=== PATIENT | female | born 1990 | race Two or more races ===

== ENCOUNTER 2024-05-04 08:26 | Emergency (ER) | payer MEDICAID, SELFPAY ==
[2024-05-04 08:35] VITALS: BP 115/88; PULSE 106; RESP 20; TEMP 36.9; O2SAT 98; BMI 36.9
--- NOTE | 2024-05-04 08:39 | PD.EDEXREM ---
ED Extremity Problem RME/HPI General Chief complaint: Extremity Problem,Nontraumatic Stated complaint: LEFT SCIATIC NERVE PAIN X YESTERDAY BUT PROGRESSED Time Seen by Provider: 05/04/24 08:29 Arrival date/time: 05/04/24 08:26 33-year-old female presents emergency department complaints of left buttock pain radiating down the left leg patient reports symptom started yesterday and has progressed patient reports history of sciatica reports feels the same. Patient reports no saddle anesthesia no loss of bowel or bladder patient reports no chance of Limitations: no limitations Related Data Previous Rx's ?Medication ?Instructions ?Recorded ibuprofen 800 mg tablet 800 mg PO TID PRN pain #30 tabs 08/02/21 ibuprofen 800 mg tablet 800 mg PO TID PRN pain #30 tabs 05/13/22 ibuprofen 800 mg tablet 800 mg PO Q8H PRN pain #30 tabs 11/16/22 cyclobenzaprine 10 mg tablet 10 mg PO TID PRN muscle spasm 10 05/04/24 days #30 tab-caps hydrocodone 5 mg-acetaminophen 325 1 tab PO BID PRN pain #10 tabs 05/04/24 mg tablet ibuprofen 800 mg tablet 800 mg PO TID PRN pain #30 tabs 05/04/24 Allergies Allergy/AdvReac Type Severity Reaction Status Date / Time No Known Allergies Allergy Verified 05/04/24 08:27 Review of Systems Review of Systems Systems Reviewed: All systems reviewed, normal except as documented Constitutional Constitutional: Reports system reviewed and no additional complaints, except as documented, Denies fever(s) and Denies headache(s) Eyes Eyes: Reports system reviewed and no additional complaints, except as documented and Denies blurry vision ENT Ears, Nose, Mouth, and Throat: Reports system reviewed and no additional complaints, except as documented, Denies headache(s), Denies nasal congestion and Denies nasal discharge Cardiovascular Cardiovascular: Reports system reviewed and no additional complaints, except as documented, Denies chest pain and Denies dyspnea Respiratory Respiratory: Reports system reviewed and no additional complaints, except as documented, Denies chest congestion, Denies cough and Denies dyspnea Gastrointestinal Gastrointestinal: Reports system reviewed and no additional complaints, except as documented and Denies abdominal pain Musculoskeletal Musculoskeletal: Reports system reviewed and no additional complaints, except as documented, Reports abnormal gait, Reports back pain, Denies deformity, Denies numbness, Reports stiffness and Denies tingling Integumentary/Breasts Skin/Breast: Reports system reviewed and no additional complaints, except as documented and Denies rash Neurologic Neurologic: Reports system reviewed and no additional complaints, except as documented, Reports as per HPI, Reports abnormal gait, Denies headache(s), Denies numbness and Denies tingling Past Medical History Past Medical History NEUROLOGIC: Negative Neurological Disorders CARDIAC: Negative Cardiac Disorders ED Exam General Limitations: Present no limitations General appearance: Present alert and in no apparent distress Head Head exam: Present atraumatic Eye Eye exam: Present normal appearance, PERRL and EOMI ENT ENT exam: Present normal exam, normal oropharynx and mucous membranes moist Neck Neck exam: Present normal inspection, full ROM and trachea midline Chest Chest inspection: Present normal inspection and symmetric chest wall rise Respiratory Respiratory exam: Present normal lung sounds bilaterally Cardiovascular Cardiovascular exam: Present regular rate, normal rhythm and normal heart sounds Abdominal Exam Abdominal exam: Present soft and normal bowel sounds Extremities Exam Extremities exam: Present normal inspection, full ROM, tenderness and normal capillary refill Back Exam Back exam: Present normal inspection, full ROM, tenderness, muscle spasm, paraspinal tenderness, sciatic notch tenderness (L) and straight leg raise (L); Absent CVA tenderness (R), CVA tenderness (L) or vertebral tenderness Neurological Exam Neurological exam: Present alert, oriented X3 and CN II-XII intact Psychiatric Psychiatric exam: Present normal affect and normal mood Skin Skin exam: Present warm, dry, intact and normal color Course Quality Measures none Orders Category Date Time Status Dexamethasone Inj [Decadron Inj] Med 05/04/24 08:55 Discontinued 10 mg IM X1 ONE Dexamethasone Inj [Decadron Inj] Med 05/04/24 08:37 Discontinued 10 mg PO X1 ONE Diazepam [Valium] Med 05/04/24 08:37 Discontinued 10 mg PO X1 ONE Ketorolac Inj [Toradol Inj] Med 05/04/24 08:37 Discontinued 30 mg IM X1 ONE Vital Signs Vital signs: Vital Signs Temperature 98.5 F 05/04/24 08:35 Pulse Rate 106 H 05/04/24 08:35 Respiratory Rate 20 05/04/24 08:35 Blood Pressure 115/88 H 05/04/24 08:35 Pulse Oximetry (%) 98 05/04/24 08:35 Oxygen Delivery Method Room Air 05/04/24 08:35 O2 saturation 98% room air within limits Extremity Problem MDM Narrative MDM Narrative:: 33-year-old female presents emergency department complaints of left buttock pain radiating down the left leg patient reports symptom started yesterday and has progressed patient reports history of sciatica reports feels the same. Patient reports no saddle anesthesia no loss of bowel or bladder patient reports no chance of On exam patient well-appearing patient does not appear ill or toxic and in no acute distress Patient medicated here for pain symptoms consistent with sciatica Patient discharged home in no distress to follow-up with primary care doctor in the next 24 to 48 hours and for any worsening symptoms to return to the ER immediately Patient data External records reviewed:: [facility] previous records Clinical information provided by:: patient Social determinants that could affect healthcare access:: none Patient has the following chronic illnesses:: None How is presenting disease/condition affected by chronic disease/condition?: no chronic disease Evaluation data The following diagnostics were reviewed and interpreted by me:: other (specify) (N/A) Lab and/or radiology exams considered but not ordered:: Consider not ordered Interpretation Summary: N/A Medications / Prescriptions Medications or Prescriptions considered but not ordered:: Given Medication administrations:: Medication Administration History Discontinued Medications Dexamethasone Sodium Phosphate (Dexamethasone Sod Phos Inj 10 Mg/Ml Vial) 10 mg PO X1 ONE Stop: 05/04/24 08:38 Last Admin: 05/04/24 09:00 Dose: Not Given Documented By: MADI Non-Admin Reason: Duplicate Medication on eMAR Dexamethasone Sodium Phosphate (Dexamethasone Sod Phos Inj 10 Mg/Ml Vial) 10 mg IM X1 ONE Stop: 05/04/24 08:56 Last Admin: 05/04/24 09:00 Dose: 10 mg Documented By: MADI Diazepam (Diazepam 5 Mg Tablet) 10 mg PO X1 ONE Stop: 05/04/24 08:38 Last Admin: 05/04/24 08:57 Dose: 10 mg Documented By: MADI Ketorolac Tromethamine (Ketorolac Inj 30 Mg/Ml Vial) 30 mg IM X1 ONE Stop: 05/04/24 08:38 Last Admin: 05/04/24 08:57 Dose: 30 mg Documented By: MADI Given Consultations Consultation(s) initiated? (list below): No Diagnosis Extremity Problem Differential Diagnosis: other (Hip pain, sciatica, radiculopathy) Most likely diagnosis given after review of the tests above:: Back pain, siatica Admission Indicated Admission indicated?: not indicated Admission Request Was there a request for admission?: No Disposition Plan Disposition Plan: Discharge Discharge Attestation Discharge Attestation: The patient and all family members were given an opportunity to ask questions and understood the discharge instructions. Discharge instructions specifically effects, indications for sooner follow up or return to the emergency department, and the expected course of current diagnosis. Patient condition: Stable Discharge Plan Plan Patient Disposition: HOME (Self Care) Disposition Comment: stable Prescriptions/Referrals Prescriptions/Med Rec: New cyclobenzaprine 10 mg tablet 10 mg PO TID PRN (Reason: muscle spasm) 10 Days Qty: 30 0RF ibuprofen 800 mg tablet 800 mg PO TID PRN (Reason: pain) Qty: 30 0RF hydrocodone-acetaminophen 5-325 mg tablet 1 tab PO BID MDD 10 PRN (Reason: pain) Qty: 10 0RF No Action ibuprofen 800 mg tablet 800 mg PO TID PRN (Reason: pain) Qty: 30 0RF ibuprofen 800 mg tablet 800 mg PO TID PRN (Reason: pain) Qty: 30 0RF ibuprofen 800 mg tablet 800 mg PO Q8H PRN (Reason: pain) Qty: 30 0RF Problem List Clinical Impression: Left sided sciatica Patient/Caregiver Discharge Instructions Education Materials: ED Sciatica Additional Instructions: Please follow up with your primary care doctor in the next 24-48hrs for any worsening symptoms return here immediately Print Language: [place] Helen[place] Stand Alone Forms: Valeria Award Info., Work/School Release, Patient Portal Info Letter LISA/CAROLINA Supervising Physician LISA/CAROLINA Supervising Physician: Dr Butt
[2024-05-04] MEDS: KETOROLAC INJ 30 MG/ML VIAL IM (08:57)
[2024-05-04] MEDS: DIAZEPAM 5 MG TABLET 10 MG PO (08:57)
[2024-05-04] MEDS: DEXAMETHASONE SOD PHOS INJ 10 MG/ML VIAL IM (09:00)
== END 2024-05-04 09:18 | disposition home or self-care (01) ==
LOC: SERX 09:06
PROVIDERS: Emergency Provider Emergency Medicine; PCP Family Medicine
DX: M54.32 Sciatica, left side (principal)
CPT/HCPCS: 96372; 99283; J1100; J1885; A9270

== ENCOUNTER 2024-11-11 19:41 | Emergency (ER) | payer MEDICAID, SELFPAY ==
[2024-11-11 19:42] VITALS: BMI 37.2
[2024-11-11 21:43] VITALS: BP 126/83; PULSE 85; RESP 18; TEMP 36.9; O2SAT 99
--- NOTE | 2024-11-11 21:46 | EDNOTE_ITS ---
ED Back Injury Pain RME/HPI General Chief Complaint: Back Pain/Injury Stated Complaint: back pain Time Seen by Provider: 11/11/24 21:33 Arrival date/time: 11/11/24 19:41 RME / HPI RME / HPI Narrative: 33-year-old female with known sciatica/degenerative disc disease at L5-S1 presents to the ED with a complaint of low back pain with radiation down the left leg. She denies loss of bladder or bowel control. She does have some tingling and radiation pain down the left leg which is normal for her. She states that she has been moving and yesterday was moving a large cumbersome mattress. Last night she started to develop some pain which was exacerbated by sitting at a graduation for a long period of time this morning. She took ibuprofen 800 mg this morning and none since. She took a nap after coming home and could barely get out of bed. She had an MRI last week and was told she has L5-S1 disc bulging. Related Data Previous Rx's ?Medication ?Instructions ?Recorded ibuprofen 800 mg tablet 800 mg PO TID PRN pain #30 t abs 08/02/21 ibuprofen 800 mg tablet 800 mg PO TID PRN pain #30 t abs 05/13/22 ibuprofen 800 mg tablet 800 mg PO Q8H PRN pain #30 t abs 11/16/22 hydrocodone 5 mg-acetaminophen 325 1 tab PO BID PRN pa in #10 tabs 05/04/24 mg tablet ibuprofen 800 mg tablet 800 mg PO TID PRN pain #30 t abs 05/04/24 methocarbamol 500 mg tablet 500 mg PO TID PRN Back spa [facility] #15 11/11/24 tabs Allergies Allergy/AdvReac Type Severity Reaction Status Date / Time No Known Allergies Allergy Verified 11/11/24 19:46 Review of Systems Review of Systems Systems Reviewed: All systems reviewed, normal except as documented Past Medical History Past Medical History NEUROLOGIC: Negative Neurological Disorders CARDIAC: Negative Cardiac Disorders or Congestive Heart Failure RESPIRATORY: Negative Chronic Obstructive Pulmonary Disease (COPD) GASTROINTESTINAL: Positive Gastrointestinal Disorders and Gall Bladder Disease GENITOURINARY: Negative Renal Disease ENDOCRINE: Negative Diabetes Mellitus Type 1 or Diabetes Mellitus Type 2 Social History SMOKING STATUS: Never smoker SUBSTANCE USE: does not use ED Exam Narrative Physical exam: Pleasant 33-year-old female, mild to moderate acute pain distress. Tenderness noted to the lumbar spine with left sciatic notch tenderness. Equal pedal push/pull. CMS intact to bilateral lower extremities. Course Course Course Narrative: 33-year-old female with known sciatica/degenerative disc disease at L5-S1 presents to the ED with a complaint of low back pain with radiation down the left leg. She denies loss of bladder or bowel control. She does have some tingling and radiation pain down the left leg which is normal for her. She states that she has been moving and yesterday was moving a large cumbersome mattress. Last night she started to develop some pain which was exacerbated by sitting at a graduation for a long period of time this morning. She took ibuprofen 800 mg this morning and none since. She took a nap after coming home and could barely get out of bed. She had an MRI last week and was told she has L5-S1 disc bulging. Pleasant 33-year-old female, mild to moderate acute pain distress. Tenderness noted to the lumbar spine with left sciatic notch tenderness. Equal pedal push/pull. CMS intact to bilateral lower extremities. The patient was given Toradol 30 mg IM as well as Valium 10 mg p.o. prior to discharge. She will be discharged home with a prescription for methocarbamol for home use. Quality Measures none Orders Category Date Time Status Diazepam [Valium] Med 11/11/24 21:46 Once 10 mg PO X1 ONE Ketorolac Inj [Toradol Inj] Med 11/11/24 21:45 Once 30 mg IM X1 ONE Vital Signs Vital signs: Vital Signs Temperature 98.5 F 11/11/24 21:43 Pulse Rate 85 11/11/24 21:43 Respiratory Rate 18 11/11/24 21:43 Blood Pressure 126/83 11/11/24 21:43 Pulse Oximetry (%) 99 11/11/24 21:43 Oxygen Delivery Method Room Air 11/11/24 21:43 Back Pain / Injury MDM Narrative MDM Narrative:: 33-year-old female with known sciatica/degenerative disc disease at L5-S1 presents to the ED with a complaint of low back pain with radiation down the left leg. She denies loss of bladder or bowel control. She does have some tingling and radiation pain down the left leg which is normal for her. She states that she has been moving and yesterday was moving a large cumbersome mattress. Last night she started to develop some pain which was exacerbated by sitting at a graduation for a long period of time this morning. She took ibuprofen 800 mg this morning and none since. She took a nap after coming home and could barely get out of bed. She had an MRI last week and was told she has L5-S1 disc bulging. Pleasant 33-year-old female, mild to moderate acute pain distress. Tenderness noted to the lumbar spine with left sciatic notch tenderness. Equal pedal push/pull. CMS intact to bilateral lower extremities. The patient was given Toradol 30 mg IM as well as Valium 10 mg p.o. prior to discharge. She will be discharged home with a prescription for methocarbamol for home use. Patient data External records reviewed:: None Clinical information provided by:: patient Social determinants that could affect healthcare access:: none Patient has the following chronic illnesses:: Chronic low back pain How is presenting disease/condition affected by chronic disease/condition?: exacerbated by Evaluation data The following diagnostics were reviewed and interpreted by me:: other (specify) (None) Lab and/or radiology exams considered but not ordered:: N/A Interpretation Summary: N/A Medications / Prescriptions Medications or Prescriptions considered but not ordered:: N/A Medication administrations:: Medication Administration History Ketorolac Tromethamine (Ketorolac Inj 60 Mg/2 Ml Vial) 30 mg IM X1 ONE Stop: 11/11/24 21:46 Toradol 30 mg IM and Valium 10 mg p.o. prior to discharge. Consultations Consultation(s) initiated? (list below): No Diagnosis Differential diagnosis back pain/injury: lumbar radiculopathy, sciatica and strain of lumbar region Most likely diagnosis given after review of the tests above:: Strain of lumbar region, exacerbation of chronic low back pain with sciatica. Admission Indicated Admission indicated?: not indicated Explain why admission is indicated or not indicated:: Patient is stable for discharge Admission Request Was there a request for admission?: No Admission Attestation Admission request attestation: N/A Disposition Plan Disposition Plan: Discharge Discharge Attestation Discharge Attestation: The patient and all family members were given an opportunity to ask questions and understood the discharge instructions. Discharge instructions specifically effects, indications for sooner follow up or return to the emergency department, and the expected course of current diagnosis. Patient condition: Stable Discharge Plan Plan Patient Disposition: HOME (Self Care) Discharge Disposition comment: Stable Prescriptions/Referrals Prescriptions/Med Rec: New methocarbamol 500 mg tablet 500 mg PO TID PRN (Reason: Back spasms) Qty: 15 0RF No Action ibuprofen 800 mg tablet 800 mg PO TID PRN (Reason: pain) Qty: 30 0RF ibuprofen 800 mg tablet 800 mg PO TID PRN (Reason: pain) Qty: 30 0RF ibuprofen 800 mg tablet 800 mg PO Q8H PRN (Reason: pain) Qty: 30 0RF ibuprofen 800 mg tablet 800 mg PO TID PRN (Reason: pain) Qty: 30 0RF hydrocodone-acetaminophen 5-325 mg tablet 1 tab PO BID MDD 10 PRN (Reason: pain) Qty: 10 0RF Referrals: Aroldo Chen MD [Primary Care Provider] - In 1 week Problem List Clinical Impression: Lumbosacral strain, Sciatica Patient/Caregiver Discharge Instructions Education Materials: ED Back Sprain/Strain, ED Sciatica Additional Instructions: Follow-up with your primary care physician in 24 to 48 hours. Return to the ED for any new or worsening symptoms. Print Language: Portuguese Stand Alone Forms: Valeria Award Info., Patient Portal Info Letter PA/CAROLINA Supervising Physician LISA/CAROLINA Supervising Physician: Dr Ramirez
[2024-11-11] MEDS: KETOROLAC INJ 60 MG/2 ML VIAL 30 MG IM (22:25)
[2024-11-11] MEDS: DIAZEPAM 5 MG TABLET 10 MG PO (22:25)
== END 2024-11-11 22:49 | disposition home or self-care (01) ==
PROVIDERS: Emergency Provider Emergency Medicine; PCP Family Medicine
DX: S39.012A Strain of muscle, fascia and tendon of lower back, initial encounter (principal); X58.XXXA Exposure to other specified factors, initial encounter
CPT/HCPCS: 96372; 99283; J1885; A9270